=== PATIENT | female | born 1995 | race Caucasian/White ===

== ENCOUNTER 2017-06-21 18:26 | Emergency (ER) | payer MEDICAID ==
[~2017-06-21] VITALS: Ht 163.8 cm; Wt 76.0 kg
[2017-06-21 18:31] VITALS: BP 119/71
[2017-06-21 19:02] LABS: EOSINOPHILS # (AUTO) 0.2 K/uL (0-0.4); EOSINOPHILS % (AUTO) 2.5 % (0.0-4.0); HEMOGLOBIN 13.2 g/dL (12.0-16.0); MONOCYTES # (AUTO) 0.5 K/uL (0.8-1.0)
[2017-06-21 19:09] LABS: BASOPHILS # (AUTO) 0.2 K/uL (0.00-0.22); HEMATOCRIT 39.2 % (36-48); LYMPHOCYTES # (AUTO) 1.6 K/uL (2.5-16.5); LYMPHOCYTES % (AUTO) 16.7 % (20.5-51.1); MEAN CORPUSCULAR HEMOGLOBIN 29 pg (27-31); MEAN CORPUSCULAR HGB CONC 34 g/dL (33-37); MEAN CORPUSCULAR VOLUME 87 fL (80-94); MONOCYTES % (AUTO) 4.7 % (1.7-9.3); NEUTROPHILS # (AUTO) 7.4 K/uL (1.8-7.7); NEUTROPHILS % (AUTO) 74.1 % (42.2-75.2); PLATELET COUNT (AUTO) 243 K/uL (140-450); RED BLOOD CELL COUNT(AUTO) 4.53 MIL/uL (4.20-5.40); RED CELL DISTRIBUTION WIDTH 12.3 % (11.6-13.7); WHITE BLOOD COUNT (AUTO) 9.9 K/uL (4.8-10.8)
[2017-06-21 19:15] LABS: BILIRUBIN,URINE NEGATIVE (NEGATIVE); BLOOD, URINE NEGATIVE (NEGATIVE); COLOR,URINE YELLOW (YELLOW); LEUKOCYTE ESTERASE ,URINE NEGATIVE (NEGATIVE); NITRITE, URINE NEGATIVE (NEGATIVE); PROTEIN,URINE NEGATIVE (NEGATIVE); UGLUCOSE NEGATIVE (NEGATIVE); UROBILINOGEN,URINE 0.2 EU/dL (0.2 - 1)
[2017-06-21 19:22] LABS: APPEARANCE,URINE HAZY (CLEAR)
--- NOTE | 2017-06-21 20:38 | NUR ---
TO ER OF
--- NOTE | 2017-06-21 20:40 | NUR ---
Patient being evaluated by physician.
[2017-06-21 21:10] VITALS: BP 127/66
--- NOTE | 2017-06-21 21:10 | NUR ---
Patient discharged with v/s stable. Written and verbal after care instructions given and explained. Patient verbalized understanding. Ambulatory with steady gait. All questions addressed prior to discharge. Advised to follow up with PMD.
== END 2017-06-21 21:10 | disposition home or self-care (01) ==
LOC: MED 18:26
DX: O20.0 Threatened abortion (principal); Z3A.01 Less than 8 weeks gestation of pregnancy
CPT/HCPCS: 36415; 76817; 81003; 81025; 84702; 85025; 86900; 86901; 99285

== ENCOUNTER 2018-09-01 21:43 | Emergency (ER) | payer MEDICAID ==
[~2018-09-01] VITALS: Ht 162.6 cm; Wt 86.2 kg
[2018-09-01 22:07] VITALS: BP 107/60
--- NOTE | 2018-09-01 22:09 | NUR ---
TO LOBBY A/W BED, COLIN SHOOK NOTED
--- NOTE | 2018-09-02 02:00 | NUR ---
ASSUMED CARE OF PT AT THIS TIME. C/O LEFT EAR ACHE AND SORETHROAT X 1 DAY. AAOX4 WITH EVEN AND STEADY GAIT; PATIENT STATES PAIN OF 6/10; VSS; PATIENT POSITIONED FOR COMFORT; HOB ELEVATED; BEDRAILS UP X2; BED DOWN. ER MD MADE AWARE OF PT STATUS. WILL CONTINUE TO MONITOR.
--- NOTE | 2018-09-02 02:00 | NUR ---
TO BED # 3 AMBULATORY, REPORT GIVEN TO DANTE BISHOP.
[2018-09-02] MEDS ORDERED: DEXAMETHASONE 10 MG/ML VIAL IM ONE (03:05)
[2018-09-02] MEDS ORDERED: AMOXICILLIN 500 MG CAP PO ONE (03:05)
[2018-09-02 03:40] VITALS: BP 110/61
--- NOTE | 2018-09-02 03:40 | NUR ---
Patient discharged with v/s stable. Written and verbal after care instructions given and explained. Patient alert, oriented and verbalized understanding of instructions. Ambulatory with steady gait. All questions addressed prior to discharge. ID band removed. Patient advised to follow up with PMD. Rx of IBUPROFEN AND AMOXICILLIN given. Patient educated on indication of medication including possible reaction and side effects. Opportunity to ask questions provided and answered.
== END 2018-09-02 03:40 | disposition home or self-care (01) ==
LOC: MED 21:43
DX: J02.9 Acute pharyngitis, unspecified (principal); H66.92 Otitis media, unspecified, left ear
CPT/HCPCS: 81025; 96372; 99283; J1100

== ENCOUNTER 2019-05-14 10:26 | Emergency (ER) | payer MEDICAID ==
[~2019-05-14] VITALS: Ht 165.1 cm; Wt 72.3 kg
[2019-05-14 10:34] VITALS: BP 96/79
--- NOTE | 2019-05-14 10:42 | NUR ---
PATIENT AMBULATED TO BED 8.
--- NOTE | 2019-05-14 11:02 | NUR ---
PT C/O SUDDENLY HAVING LOWER BACK PAIN RADIATES TO BOTH THIGS AND KNEES SINCE YESTERDAY MORNING WHILE SHE WOKE UP. PT ALSO STATES SHE HAS RIGHT-SIDED PRESSURE-LIKE AND THROBBING HEADACHE, SORE THORAT, AND CHILLS FOR ONE DAY. DENIES N/V/D; SKIN IS PINK/WARM/DRY; AAOX4 WITH EVEN AND STEADY GAIT; PT DENIES ANY FEVER, CP, SOB, BUT HAVING MINOR COUGH AT THIS TIME; PATIENT STATES PAIN OF 5/10 AT THIS TIME; VSS; PATIENT POSITIONED FOR COMFORT; HOB ELEVATED; BEDRAILS UP X1; BED DOWN. ER MD MADE AWARE OF PT STATUS.
--- NOTE | 2019-05-14 11:33 | NUR ---
PATIENT PRESENTS TO ED C/O SORE THROAT, NON-PRODUCTIVE COUGH AND HEADACHE X 1 DAY. -NAUSEA, -VOMITING, -RUNNY NOSE. PT STATES PAIN IS 5/10 AT THIS TIME. PT STATES, SHE HAS BEEN RUNNING FEVERS AT HOME. AFEBRILE AT THIS TIME.
--- NOTE | 2019-05-14 11:38 | NUR ---
TEMP 98.2 ORALLY
--- NOTE | 2019-05-14 13:23 | NUR ---
Patient discharged with v/s stable. Written and verbal after care instructions given and explained. Patient alert, oriented and verbalized understanding of instructions. Ambulatory with steady gait. All questions addressed prior to discharge. ID band removed. Patient advised to follow up with PMD. Rx of NORCO, MOTRIN given. Patient educated on indication of medication including possible reaction and side effects. Opportunity to ask questions provided and answered.
[2019-05-14 13:24] VITALS: BP 101/81
== END 2019-05-14 13:23 | disposition home or self-care (01) ==
LOC: MED 10:26
DX: J02.8 Acute pharyngitis due to other specified organisms (principal); B96.89 Other specified bacterial agents as the cause of diseases classified elsewhere; B97.89 Other viral agents as the cause of diseases classified elsewhere
CPT/HCPCS: 87081; 99283